=== PATIENT | female | born 1995 | race Caucasian/White ===

== ENCOUNTER 2019-10-14 19:23 | Inpatient (IN) | payer OTHER, SELFPAY ==
[2019-10-14 20:27] VITALS: BP 142/83; PULSE 107
[2019-10-14 20:53] VITALS: BMI 40.3
--- NOTE | 2019-10-14 20:56 | LDADM ---
This patient, Anna Gray, was admitted to Labor/Delivery/Recovery 105 on 10/14/19 at 19:23. Plans for labor, pain management and were discussed with patient. Patient/family oriented to hospital policies and general routines including ID bracelet, bed and alarms, visiting hours, pain management, procedures, bathroom and other care routines, personal items, smoking policy, room service/diet and guest tray routines, infant security routines, and visiting hours. Patient/Family are encouraged to report perceived risks to care and to ask questions if they do not understand what they are told or what they should do. See OBIX for further documentation.
[2019-10-14 21:00] VITALS: TEMP 36.9
[2019-10-14 21:01] VITALS: BP 123/78; PULSE 103
[2019-10-14 21:12] LABS: Basophils Absolute Auto 0.1 K/mm3 (0.0-0.1); Basophils Percent Auto 0.3 % (0.2-1.2); Eosinophils Absolute Auto 0.1 K/mm3 (0-0.3); Eosinophils Percent Auto 0.6 % (0-4.4); Hematocrit 35.3 % (37.0-47.0); Hemoglobin 11.8 g/dL (12.0-15.0); Immature Granulocyte Absolute 0.12 K/mm3 (0.00-0.031); Immature Granulocyte Percent A 0.6 % (0-0.5); Lymphocytes Absolute Auto 2.73 K/mm3 (0.9-3.2); Lymphocytes Percent Auto 14.4 % (18.3-44.2); Mean Corpuscular HGB Conc 33.4 g/dl (32-36); Mean Corpuscular Hemoglobin 27.8 pg (26-34); Mean Corpuscular Volume 83.3 fl (80-100); Monocytes Percent Auto 5.3 % (2.6-8.5); Neutrophils Percent Auto 78.8 % (45.5-73.1); Platelet Count Result 253 k/mm3 (150-375); Red Blood Count 4.24 M/mm3 (4.2-5.4); Red Cell Distribution Width 14.1 % (11.5-14.5)
[2019-10-14 21:24] LABS: Alanine Aminotransferase 15 U/L (4-35); Albumin Level 3.9 g/dL (3.5-5.1); Alkaline Phosphatase 160 U/L (38-126); Aspartate Amino Transferase 23 U/L (14-36); Bilirubin,Total 0.2 mg/dL (0.2-1.3); Blood Urea Nitrogen 7 mg/dL (7-17); Calcium 10.1 mg/dL (8.4-10.2); Carbon Dioxide 25 mmol/L (22-30); Chloride 102 mmol/L (98-107); Estimated CRCL calculation 180 ml/min; Estimated Glomerular Filt Rate > 60; Glucose 88 mg/dL (65-105); Potassium 3.4 mmol/L (3.4-5.0); Sodium 133 mmol/L (137-145); Uric Acid 3.7 mg/dL (2.5-7.5)
[2019-10-14] MEDS: DINOPROSTONE 10 MG VAG INSERT VAGINAL (21:34)
--- NOTE | 2019-10-14 21:35 | WPDANESEPP ---
Anes - Eval Pre Procedure Procedure: labor epidural Date/Time: 10/14/19 21:35 Surgeon: chris Pre Op Diagnosis: Induction Patient Data Age: 23 Gender: F Height: 1.65 m Weight: 110 kg Last Vital Signs Pulse 103 H 10/14/19 21:01 BP 123/78 10/14/19 21:01 Allergies Allergy/AdvReac Type Severity Reaction Status Date / Time adhesive Allergy Hives Verified 09/26/19 12:32 latex Allergy Hives Verified 09/26/19 12:31 Home Medications Medication Instructions Recorded Confirmed Type PNV cmb#95-ferrous fumarate-FA 1 tablet PO DAILY 09/26/19 09/26/19 History [] Laboratory Tests 10/14/19 10/14/19 10/14/19 21:07 21:07 21:07 WBC 19.0 K/mm3 H K/mm3 (4.5-10.0) RBC 4.24 M/mm3 M/mm3 (4.2-5.4) Hgb 11.8 g/dL L g/dL (12.0-15.0) Hct 35.3 % L % (37.0-47.0) MCV 83.3 fl fl (80-100) MCH 27.8 pg pg (26-34) MCHC 33.4 g/dl g/dl (32-36) RDW 14.1 % % (11.5-14.5) Plt Count 253 k/mm3 k/mm3 (150-375) MPV 11.0 fl H fl (7.4-10.4) Immature Gran % (Auto) 0.6 % H % (0-0.5) Neut % (Auto) 78.8 % H % (45.5-73.1) Lymph % (Auto) 14.4 % L % (18.3-44.2) [place] % (Auto) 5.3 % % (2.6-8.5) Eos % (Auto) 0.6 % % (0-4.4) Baso % (Auto) 0.3 % % (0.2-1.2) Lymph # (Auto) 2.73 K/mm3 K/mm3 (0.9-3.2) [place] # (Auto) 1.0 K/mm3 H K/mm3 (0.1-0.6) Eos # (Auto) 0.1 K/mm3 K/mm3 (0-0.3) Baso # (Auto) 0.1 K/mm3 K/mm3 (0.0-0.1) Abs Immat Gran (auto) 0.12 K/mm3 H K/mm3 (0.00-0.031) Absolute Neuts (auto) 15.0 K/mm3 H K/mm3 (1.3-6.7) Absolute Nucleated RBC 0.0 K/mm3 K/mm3 (0.0-0.012) Nucleated RBC % 0.0 % % (0.0-0.2) Sodium Potassium Chloride Carbon Dioxide BUN Creatinine Estim Creat Clear Calc Estimated GFR Glucose Uric Acid Calcium Total Bilirubin AST ALT Alkaline Phosphatase Total Protein Albumin RPR Pending Blood Type Pending Antibody Screen Pending 10/14/19 21:07 WBC RBC Hgb Hct MCV MCH MCHC RDW Plt Count MPV Immature Gran % (Auto) Neut % (Auto) Lymph % (Auto) [place] % (Auto) Eos % (Auto) Baso % (Auto) Lymph # (Auto) [place] # (Auto) Eos # (Auto) Baso # (Auto) Abs Immat Gran (auto) Absolute Neuts (auto) Absolute Nucleated RBC Nucleated RBC % Sodium 133 mmol/L L mmol/L (137-145) Potassium 3.4 mmol/L mmol/L (3.4-5.0) Chloride 102 mmol/L mmol/L (98-107) Carbon Dioxide 25 mmol/L mmol/L (22-30) BUN 7 mg/dL mg/dL (7-17) Creatinine 0.50 mg/dL L mg/dL (0.7-1.0) Estim Creat Clear Calc 180 ml/min ml/min Estimated GFR > 60 (59 - ) Glucose 88 mg/dL mg/dL (65-105) Uric Acid 3.7 mg/dL mg/dL (2.5-7.5) Calcium 10.1 mg/dL mg/dL (8.4-10.2) Total Bilirubin 0.2 mg/dL mg/dL (0.2-1.3) AST 23 U/L U/L (14-36) ALT 15 U/L U/L (4-35) Alkaline Phosphatase 160 U/L H U/L (38-126) Total Protein 7.0 g/dL g/dL (6.3-8.2) Albumin 3.9 g/dL g/dL (3.5-5.1) RPR Blood Type Antibody Screen Patient hx anesthesia problems: none Family hx anesthesia problems: none PMFSH Family History Family History (Updated 09/26/19 @ 12:33 by Mikael Acevedo RN) Mother Hypertension Social History Social History Smoking packs per day: 1 Smoking cigarettes per day: 20.0 Years smoked: 5 Smoking pack-years: 5.00 Tobacco type: cigarettes Second hand tobacco smoke exposure: No Substance
[2019-10-14 23:33] VITALS: BP 126/66; PULSE 98
[2019-10-15] VITALS (130 sets, daily range): BP systolic 96–157; BP diastolic 48–116; PULSE 76–128; RESP 16; TEMP 36.2–37; O2SAT 91–100
--- NOTE | 2019-10-15 04:27 | WPDOBADMIT ---
Obstetrics - Admit Note Admission Note: record reviewed. No pertinent additions to the history and/or any subsequent changes in the physical findings that are not consistent with the expected course of the were found. MIL for CHTN, gestational diabetes, diet controlled Additions to the history and/or subsequent changes in the physical findings follow. None.
[2019-10-15 07:08] LABS: Rapid Plasma Reagin Non-Reactive (NonReactive)
--- NOTE | 2019-10-15 08:06 | PM.OBPNLAB ---
Pain Control Date/time seen: 10/15/19 08:06 Contractions irregular FHR category 2. Cervix 50/-2 AROM moderate amount of clear odorless fluid Epidural if desired Anticipate
[2019-10-15] MEDS: LACTATED RINGERS 1,000 ML 125 ML IV CONT ×2 (08:07→12:08)
[2019-10-15] MEDS: OXYTOCIN 30 UNITS/NS 500 ML 30 UNITS/500 ML BAG IV CONT (09:06)
[2019-10-15 09:33] LABS: Glucose Point of Care 89 (65-105)
[2019-10-15 13:54] LABS: Glucose Point of Care 82 (65-105)
[2019-10-15 17:29] LABS: Glucose Point of Care 65 (65-105)
--- NOTE | 2019-10-15 19:59 | PM.OBPRVD ---
OB - Delivery Note Procedure Delivery date: 10/15/19 events: No Care Intrapartal events: None Estimated blood loss (mL): 85 Anesthesia type: Epidural Baby Date of : 10/15/19 Time of : 19:43 Weeks of gestation at delivery: 38 Infant gender: Female presentation: vertex position: Right Occiput Anterior (Compound presentation. Right arm.) Placenta delivery description: Spontaneous cord vessel description: 3 Vessels score one minute: 9 score five minutes: 9
[2019-10-15] MEDS: OXYTOCIN 30 UNITS/NS 500 ML 30 UNITS/500 ML BAG 125 UNITS IV CONT (21:12)
[2019-10-15] MEDS: IBUPROFEN 600 MG TABLET PO (21:14)
[2019-10-16 06:01] LABS: Hematocrit 33.1 % (37.0-47.0); Hemoglobin 10.8 g/dL (12.0-15.0)
--- NOTE | 2019-10-16 07:29 | PM.OBPNVD ---
OB - PN: Subj Subjective Date/time seen: 10/16/19 07:29 OB - PN: Obj Data Labs CBC & Chem 7: 10/16/19 04:48 10/14/19 21:07 Labs: Laboratory Results - last 24 hr 10/15/19 10/15/19 10/15/19 09:30 13:43 17:27 Hgb Hct POC Capillary Glucose 89 82 65 10/16/19 04:48 Hgb 10.8 L Hct 33.1 L POC Capillary Glucose OB - PN A/P Plan day: 1 Plan: discharge home Time Spent With Patient Time: Total time spent is greater than 50% in coordination of care (as documented) at patient's floor/unit and/or counseling patient: Exam Const: General: comfortable Resp: Effort & Inspection: normal respiratory effort Psych: Appearance: grossly normal Affect: normal affect Attitude: cooperative
--- NOTE | 2019-10-16 07:33 | PM.OBDSVD ---
OB - DS: Summary OB Procedures : None OB Procedures Intrapartum: Spontaneous Vag Delivery OB Procedures: : None Time Spent with Patient Time attestation: Total time spent providing and/or coordinating discharge services: Exam Const: General: comfortable Resp: Effort & Inspection: normal respiratory effort GI: GI Palp: Yes Soft to palpation Psych: Appearance: grossly normal Affect: normal affect Attitude: cooperative DS: Data Data Completed and Pending Pending studies at discharge: Pending at discharge 10/15/19 20:00 Surgical [PTH] Routine Labs on day of discharge: Labs from last 24 hours 10/16/19 10/15/19 10/15/19 04:48 17:27 13:43 Hgb 10.8 L Hct 33.1 L POC Capillary Glucose 65 82 10/15/19 09:30 Hgb Hct POC Capillary Glucose 89 Discharge Plan Discharge Attending physician on discharge: Charles Holly Discharging Clinician: Genoveva Noriega Patient Disposition: Home, Self-Care Activity: pelvic rest Diet: regular Patient Instructions: Antibiotic Form Stand Alone Forms: General Discharge Information Follow-up/Referrals: Genoveva Noriega, ABIDAM [Certified Nurse [employer] Mathematics Teacher] - 4 Weeks Discharge Medications: No Action PNV cmb#95-ferrous fumarate-FA [] 28 mg iron- 800 mcg Tablet 1 tablet PO DAILY RF: 0 Date of admission: 10/14/19 19:23 Primary Care Provider: Ermelinda,Anibal Castañeda Admitting Provider: Charles Holly Attending physician on admission: Charles Holly
[2019-10-16 08:20] VITALS: BP 135/69; PULSE 99; RESP 18; TEMP 36.6; O2SAT 100
--- NOTE | 2019-10-16 09:00 | PC.NURSE ---
PT introductions made and plan of care discussed per post , pain management, breast feeding, daily care activities and pending discharge to home.PT verbalized understanding of such care.
[2019-10-16] MEDS: MULTIVIT/MIN/PREN/FOL AC/IRON TABLET 1 TAB PO (09:27)
[2019-10-16] MEDS: IBUPROFEN 600 MG TABLET PO ×2 (09:27→15:00)
[2019-10-16] MEDS: TETANUS,DIPHTHERIA,AC PERTUSSIS ADULT (0.5 ML) BOOSTRIX IM (09:28)
[2019-10-16 10:03] VITALS: PULSE 112; RESP 16; O2SAT 100
--- NOTE | 2019-10-16 11:27 | WPDANLDPN2 ---
Anes-Prog Note L&D Date/Time: 10/16/19 11:27 Comfortable throughout: labor and delivery Neuraxial method: epidural Epidural/Spinal procedure site: clean & non-tender Neuro status: Neuro function grossly intact. Cardiovascular status: normal Respiratory status: normal Airway patency: baseline Mental status: baseline Post-Op hydration status: normal Vital Signs: Last Vital Signs Temp 36.6 C 10/16/19 08:20 Pulse 112 H 10/16/19 10:03 Resp 16 10/16/19 10:03 BP 135/69 10/16/19 08:20 Pulse Ox 100 10/16/19 10:03 Post-procedural complaints: none Patient feedback: Patient satisfied with anesthetic care.
--- NOTE | 2019-10-16 13:15 | PC.NURSE ---
Consulted with patient, mother reports infant is latching without discomfort, mother states is sleepy at feedings and is on and off during. Reviewed sleepiness is normal and stimulation to wake and during feedings with assist with keep awake and nursing effectively for increased intake and maintaining deep latch. Reviewed feeding cues, frequencies, duration of feedings, feeding elimination flow sheet, and signs of adequate intake. Demonstrated stimulation techniques to wake for feeding. Assisted with to breast. Reviewed positioning/alignment in cross cradle, holding breast in U hold and guided asymmetrical latch on. Several attempts before was able to latch correctly. nursed eagerly, with steady draws and frequent swallowing noted. Reviewed signs of a correct latch, effective nursing and suck swallow ratio. Infant was able to maintain latch without discomfort to mother. Nipple care reviewed. Instructed mother to call out for RN assistance if she is unable to latch infant for feeding or she has discomfort with nursing. Instructed feeding should be initiated three hours from start of last feeding or if feeding cues are noted before. Mother voiced understanding of information shared. Mother wishes to be discharged in 24 hours. Mother is feeding as required and waking infant to feed if needed. is currently meeting outcomes for weight, output, jaundice and feeding frequencies. Mother states she feels confident to continue effective at home. Reviewed transition to breast milk, signs of adequate intake, and engorgement/relief. Instructed to call ICP if intake/output less than required. Reviewed regular medications mother is taking. Information provided per Ines. Reviewed community resources on the [facility] website and in the Mom/Baby guide. Information on outpatient services provided. Mother has no further questions at this time.
== END 2019-10-16 21:00 | disposition home or self-care (01) | DRG 807 ==
LOC: ANHLDR 10-15 10:19 → ANHOB2 10-15 22:17
PROVIDERS: Advanced Practice Midwife; Admitting Provider Obstetrics & Gynecology; PCP Family Medicine; Visit Provider Obstetrics & Gynecology
DX: O10.92 Unspecified pre-existing hypertension complicating childbirth (principal); Z37.0 Single live birth; Z3A.38 38 weeks gestation of pregnancy; O24.420 Gestational diabetes mellitus in childbirth, diet controlled; O32.6XX0 Maternal care for compound presentation, not applicable or unspecified
CPT/HCPCS: 36415; 80053; 84550; 85014; 85018; 85025; 86592; 86850; 86900; 86901; 88307; 90715; A9270; J2590; J2795; J7120

== ENCOUNTER 2020-02-16 07:18 | Emergency (ER) | payer OTHER, SELFPAY ==
--- NOTE | ~2020-02-16 | XR_ITS ---
EXAMINATION: XR lumbar spine 2-3V DATE: 02/16/2020 08:50 INDICATION: Low back pain TECHNIQUE: Anteroposterior and lateral views of the lumbar spine, and cone-down lateral view of the l umbosacral junction were obtained. COMPARISON: None. FINDINGS: There is no fracture, dislocation, or subluxation. The vertebral body heights, alignment, a nd intervertebral disc spaces are normal. The paravertebral soft tissues are unremarkable. IMPRESSION: 1. No acute osseous abnormality. Reviewed, dictated and finalized at location B.
--- NOTE | ~2020-02-16 | XR_ITS ---
EXAMINATION: XR thoracic spine 3V DATE: 02/16/2020 08:51 INDICATION: Back pain TECHNIQUE: AP, lateral and lateral swimmer's views of the thoracic spine were obtained. COMPARISON: None. FINDINGS: There is no fracture, dislocation, or subluxation. The vertebral body heights, alignment, a nd intervertebral disc spaces are normal. The paravertebral soft tissues are unremarkable. IMPRESSION: 1. No acute osseous abnormality. Reviewed, dictated and finalized at location B.
[2020-02-16 07:38] VITALS: BP 139/89; PULSE 108; RESP 18; TEMP 36.9; O2SAT 99
--- NOTE | 2020-02-16 08:20 | ED.BACK ---
HPI - Back Pain/Injury General Chief Complaint: Back Pain/Injury Stated Complaint: back pain Time Seen by Provider: 02/16/20 08:03 Source: patient Mode of arrival: ambulatory Limitations: no limitations History of Present Illness HPI Narrative: This patient is a 24 year old female who presents evaluation of back pain. Patient states she has pain her back when movement. She woke up with the pain 2 days ago. She thinks it is due to have lifting her 4 month old. She has taken tylenol for her pain. She denies focal weakness, numbness, headache, nausea, vomiting or fever. MD elicited complaint: back pain Related Data Allergies Allergy/AdvReac Type Severity Reaction Status Date / Time adhesive Allergy Hives Verified 02/16/20 07:37 latex Allergy Hives Verified 02/16/20 07:37 Review of Systems Review of Systems: All systems reviewed & are unremarkable except as noted in HPI and below Constitutional: Constitutional: Denies chills and Denies fever(s) Gastrointestinal: Gastrointestinal: Denies abdominal pain, Denies nausea and Denies vomiting Genitourinary: Genitourinary: Denies hematuria, Denies dysuria and Denies flank pain Musculoskeletal: Musculoskeletal: Reports back pain PMFSH Past Medical History Medical History (Updated 02/16/20 @ 09:35 by Alida Matthews MD) Patient denies medical problems Family History Family History (Updated 09/26/19 @ 12:33 by Mikael Acevedo RN) Mother Hypertension Social History Social History Smoking packs per day: 1 Smoking cigarettes per day: 20.0 Years smoked: 5 Smoking pack-years: 5.00 Tobacco type: cigarettes Second hand tobacco smoke exposure: No Substance use: never Gender identity (if verbalized by the patient): Female Spiritual care concerns: No Exam Narrative: Exam Narrative: GENERAL: Well-appearing, well-nourished, and in no acute distress. HEAD: Normocephalic, atraumatic EYES: PERRLA and EOMI, conjunctiva clear without discharge EARS: TM's clear bilaterally without erythema or dullness NOSE: Nares clear, no rhinorrhea or epistaxis THROAT:Mucous membranes moist, Oropharynx normal without erythema, exudate, peritonsillar swelling or fluctuance NECK: Supple, without lymphadenopathy or mass RESPIRATORY: No respiratory distress, Airway patent, Respirations non-labored, Clear to auscultation without rales, rhonchi or wheeze HEART: Regular rate and rhythm. No murmur heard. Normal peripheral pulses. ABDOMEN: Soft, nontender, nondistended, normal active bowel sounds. No masses. No rebound or guarding, No organomegaly. EXTREMITIES: No edema, normal strength with full range of motion. SKIN: Warm, dry, normal color without rash NEURO: Alert and oriented x3. CN 2-12 grossly intact. No focal deficits. PSYCH: Normal mood and affect. Course Reevaluation(s) Reevaluation #1: Patient reports she feels better. Date: 02/16/20 Time: 09:34 Vital Signs Vital signs: Vital Signs Temperature 98.5 F 02/16/20 07:38 Pulse Rate 108 H 02/16/20 07:38 Respiratory Rate 18 02/16/20 07:38 Blood Pressure 139/89 02/16/20 07:38 Pulse Oximetry 99 02/16/20 07:38 Temperature 98.5 F 02/16/20 07:38 Pulse Rate 108 H 02/16/20 07:38 Respiratory Rate 18 02/16/20 07:38 Blood Pressure 139/89 02/16/20 07:38 Pulse Oximetry 99 02/16/20 07:38 MDM - Back Pain/Injury Lab Data Labs: Lab Results 02/16/20 Range/Units 08:37 Urine Color Yellow (Yellow) Urine Appearance Cloudy H (Clear) Urine pH 5.0 (5.0-9.0) Ur Specific [place] 1.023 (1.001-1.035) Urine Protein Negative (Negative) mg/dL Urine Glucose (UA) Negative (Negative) mg/dL Urine Ketones Negative (Negative) mg/dL Ur Blood (Man) Negative (Negative) Urine Nitrate Negative (Negative) Urine Bilirubin Negative (Negative) Urine Urobilinogen Negative (<2.0) mg/dL Leukocyte Esterase Rfl 2+ H (Negative) IKER/UL Urine RBC 3-5 H
[2020-02-16] MEDS: KETOROLAC (*BKC) 60 MG/2 ML VIAL IM (08:29)
--- NOTE | 2020-02-16 08:38 | PC.NURSE ---
PT TO XRAY AT THIS TIME PER W/C.
[2020-02-16 08:49] LABS: Add Urine Microscopic? YES; Appearance Urine Cloudy (Clear); Bacteria Urine 1+ /hpf; Bilirubin Urine Negative (Negative); Blood Urine Negative (Negative); Color Urine Yellow (Yellow); Glucose Urine UA Negative (Negative); Ketones Urine Negative (Negative); Leukocyte Esterase Ur 2+ LEU/UL (Negative); Mucus Urine Heavy /lpf; Nitrate Urine Negative (Negative); Protein Urine Negative (Negative); Specific Grav Ur 1.023 (1.001-1.035); Squamous Epithelial Cell Urine Many /hpf (Few); Urobilinogen Urine Negative mg/dL (<2.0)
== END 2020-02-16 09:43 | disposition home or self-care (01) ==
PROVIDERS: Emergency Provider General Practice; PCP Family Medicine
DX: S39.012A Strain of muscle, fascia and tendon of lower back, initial encounter (principal); S16.1XXA Strain of muscle, fascia and tendon at neck level, initial encounter; X50.0XXA Overexertion from strenuous movement or load, initial encounter
CPT/HCPCS: 72072; 72100; 81001; 81025; 96372; 99283; J1885

== ENCOUNTER 2025-05-11 08:15 | Emergency (ER) | payer OTHER, SELFPAY ==
[2025-05-11 08:28] VITALS: BP 148/90; PULSE 110; RESP 16; TEMP 36.4; O2SAT 98
[2025-05-11 08:38] LABS: EDSTREPNEGPOS1 Negative (Negative)
--- NOTE | 2025-05-11 09:09 | ED_ITS ---
HPI - URI/Sore Throat General Chief Complaint: Upper Respiratory Infection Stated Complaint: Cough Time Seen by Provider: 05/11/25 08:30 Source: patient and RN notes reviewed Mode of arrival: ambulatory Limitations: no limitations History of Present Illness HPI Narrative: 29-year-old female presents Express Care complaining of upper respiratory symptoms for approximately 8 days. Patient reports a uncontrollable, mucopurulent nasal drainage, congestion, sinus pressure, and body aches. Patient says the cough is worse at night when she is trying to sleep. Patient has tried [id number] cough medicine without relief. Patient denies any fevers, chills, nausea vomiting, diarrhea, chest pain, difficulty breathing, or any other symptoms. Patient has tried [id number] Mucinex to help with symptoms. Patient denies any significant past medical history. Related Data Allergies Allergy/AdvReac Type Severity Reaction Status Date / Time adhesive Allergy Hives Verified 05/11/25 08:27 latex Allergy Hives Verified 05/11/25 08:27 Review of Systems Review of Systems: CONSTITUTIONAL: Denies fever, chills, or sweats. Positive for body aches. EYES: Denies visual changes, redness, or discharge. ENT: Positive for sinus pressure, congestion, sore throat. Negative for otalgia. CARDIOVASCULAR: Denies chest pain, palpitations, or edema. RESPIRATORY: Positive for cough. Negative for dyspnea. GASTROINTESTINAL: Denies abdominal pain, nausea, vomiting, or diarrhea. GENITOURINARY: Denies dysuria or hematuria. SKIN: Denies rash or itching. MUSCULOSKELETAL: Denies back pain, joint pain, or myalgia. NEUROLOGIC: Denies headache, numbness, or weakness. PSYCHIATRIC: Denies anxiety or depression. All other systems reviewed are negative, except as documented in HPI. [facility] Past Medical History Medical History Patient denies medical problems Family History Family History Mother Hypertension Social History Social History Smoking packs per day: 1 Smoking cigarettes per day: 20.0 Years smoked: 5 Smoking pack-years: 5.00 Tobacco type: cigarettes Second hand tobacco smoke exposure: No Substance use: never Gender identity (if verbalized by the patient): Female Spiritual care concerns: No Comments At the time of my signature, I reviewed and agree with the nursing past medical, surgical, social, and family history. There is no relevant family history pertinent to the patient complaint. Exam Narrative: GENERAL: This is a well-nourished, well-developed adult, in no apparent distress. They are non ill-appearing, nontoxic appearing. HEAD: normocephalic, atraumatic. EYES: Sclera clear/white. Vision is grossly intact. Conjunctiva normal bilaterally. Extraocular movements intact. EARS: External ears normal, auditory canals clear and without drainage, TMs without erythema or perforation. Hearing grossly intact. NOSE: External nose normal with no obvious nasal discharge, nasal turbinates erythematous, no rhinorrhea. THROAT: Mucous membranes moist, posterior pharynx erythematous without exudate. Uvula is midline. Postnasal drip present. NECK: Neck supple, non-tender without lymphadenopathy, masses or thyromegaly. CARDIOVASCULAR: Regular rate and rhythm without murmurs, gallops, or rubs. RESPIRATORY: Clear to auscultation. Breath sounds equal bilaterally. No wheezes, rales, or rhonchi. SKIN: warm, Dry, intact with no suspicious lesions or rash, good texture and turgor. NEURO: awake, alert, and oriented to person, place and time. There were no obvious focal neurologic abnormalities. EXTREMITIES: No joint tenderness, effusion, or edema noted. BACK: Nontender without deformity. Course Course Level of Care: Express Care Visit Vital Signs Vital signs: Vital Signs Oxygen Delivery Room Air 05/11/25 08:23 Temperature 97.5 F L 05/11/25 08:28 Pulse Rate 110 H 05/11/25 08:28 Respiratory Rate 16 05/11/25 08:28 Blood Pressure 148/90 H 05/11/25 08:28 Pulse Oximetry 98 05/11/25 08:28 Oxygen Delivery Room Air 05/11/25 08:23 [facility] Narrative Medical decision making narrative: Rapid strep negative. A throat culture is pending. Given length of symptoms likely patient has a bacterial sinusitis. Will treat her with Augmentin. Will also give her benzonatate tablets for cough. Given the severity of her cough will give her a course of prednisone. Discussed physical exam findings. Advised supportive measures and signs/symptoms to go to the ER. Pt is appropriate for outpt treatment and f/u. Differential Diagnosis Differential Diagnosis: Upper respiratory infection, sinusitis, viral illness, pharyngitis Lab Data MDM Lab Attestation statement: I personally reviewed the patient's lab results. Labs: Lab Results 05/11/25 Range/Units 08:36 POC Grp A Strep Screen Negative (Negative) Discharge Plan Discharge Clinical Impression: Sinusitis Qualifiers: Sinusitis location: unspecified location Chronicity: acute Recurrence: non-recurrent Qualified Code(s): J01.90 - Acute sinusitis, unspecified Patient Disposition: Home Condition: Stable Instructions: Antibiotic Form, Sinusitis (ED) Additional Instructions: Take the antibiotics as directed and complete the course even if you start to feel better. You may use a Neti pot saline rinse 3 times a day with lukewarm distilled water Take prednisone as directed. Take benzonatate tablets as needed for cough. Continue to take Tylenol or Motrin as needed for fever or pain. Follow instructions on the bottle. Use a humidifier or vaporizer at night. Drink plenty of water. 8-10 glasses per day. Use flonase 2 times per day for 5 days then as needed Take mucinex 2 times per day and be sure to take with 8oz of water. Follow up with Primary provider in 3-5 days Please go to the ER if he develops any difficulty breathing, chest pain, nausea vomiting, worsening symptoms, or any other concerns Patient Language: Nam[place]ian Prescriptions: New benzonatate 200 mg capsule 200 mg PO BID PRN (Reason: cough) Qty: 20 0RF prednisone 20 mg tablet 40 mg PO DAILY 5 Days Qty: 10 0RF amoxicillin-pot clavulanate 875-125 mg tablet 1 tablet PO Q12H 7 Days Qty: 14 0RF No Action acetaminophen [Mapap (acetaminophen)] 325 mg Tablet 650 mg PO Q6H PRN (Reason: Mild Pain (1-3) Or Headache) 0RF naproxen 500 mg tablet 500 mg PO BID PRN (Reason: pain) Qty: 14 0RF cyclobenzaprine 10 mg tablet 10 mg PO TID PRN (Reason: muscle spasm) Qty: 14 0RF Follow-up/Referrals: PHYSICIAN,INTELLIGENCE INTERN [Primary Care Provider, Internal Medicine] Time of Disposition: 08:47
== END 2025-05-11 08:55 | disposition home or self-care (01) ==
DX: J01.90 Acute sinusitis, unspecified (principal); F17.210 Nicotine dependence, cigarettes, uncomplicated
CPT/HCPCS: 87081; 87880; 99213; G0463